=== PATIENT | female | born 1955 | race American Indian/Alaskan Native ===

== ENCOUNTER 2018-05-11 19:21 | Emergency (ER) | payer OTHER ==
[2018-05-11 20:37] VITALS: BP 144/91
[2018-05-11] MEDS ORDERED: BENADRYL PO ONE (23:58)
[2018-05-11] MEDS ORDERED: DELTASONE PO ONE (23:58)
[2018-05-11] MEDS ORDERED: PEPCID PO ONE (23:58)
--- NOTE | 2018-05-12 00:38 | Emergency Department Report ---
HPI - General Chief Complaint: Allergic Reaction Time Seen by Provider: 05/11/18 23:58 - HPI HPI: Patient presents with rash to trunk and arms status post starting ketoconazole call PCP today advised to stop taking ketoconazole patient states unable to get Benadryl at home and presents tonight for rash raised smooth erythema and pruritus no fever no drainage is no shortness of breath no wheezing no throat swelling no stridor no chest pain no nausea vomiting dizziness or lightheadedness ED Past Medical Hx - Past Medical History Hx Hypertension: Yes (borderline) - Surgical History Additional Surgical History: uterus removed - Social History Smoking Status: Current Every Day Smoker Substance Use Type: Alcohol - Medications Home Medications: Home Medications Medication Instructions Recorded Confirmed Last Taken Type Azithromycin [Zithromax] 500 mg PO QDAY #3 tablet 09/16/13 Unknown Rx HYDROcodone/APAP 5-325 [[place] 1 each PO Q6HR PRN #20 tablet 09/16/13 Unknown Rx 5/325 mg] amLODIPine [Norvasc] 5 mg PO DAILY #30 tab 09/16/13 Unknown Rx Famotidine [Pepcid] 20 mg PO BID PRN 7 Days #14 tablet 05/12/18 Unknown Rx diphenhydrAMINE [Benadryl CAP] 25 mg PO Q6HR PRN 7 Days #28 05/12/18 Unknown Rx capsule predniSONE [Deltasone] 20 mg PO QDAY 7 Days #14 tab 05/12/18 Unknown Rx ED Review of Systems ROS: Stated complaint: REACTION TO MEDICATION Other details as noted in HPI Constitutional: denies: chills, fever Eyes: denies: eye pain, eye discharge, vision change ENT: denies: ear pain, throat pain Respiratory: denies: cough, shortness of breath, wheezing Cardiovascular: denies: chest pain, palpitations Endocrine: no symptoms reported Gastrointestinal: denies: abdominal pain, nausea, diarrhea Genitourinary: denies: urgency, dysuria, discharge Musculoskeletal: denies: back pain, joint swelling, arthralgia Skin: rash, pruritus Neurological: denies: headache, weakness, numbness, paresthesias, abnormal gait , vertigo Psychiatric: denies: anxiety, depression Hematological/Lymphatic: denies: easy bleeding, easy bruising Physical Exam - Physical Exam Vital Signs: Vital Signs 05/11/18 20:34 Temperature 98.2 F Pulse Rate 102 H Respiratory 18 Rate Blood Pressure 144/91 [Left] O2 Sat by Pulse 98 Oximetry General: No no acute distress patient 3 no shortness of breath no stridor no wheezing rash improving with Benadryl Physical Exam: Patient a&o 3 no acute distress no shortness of breath no wheezing no stridor no chest pain no nausea vomiting no dizziness no lightheadedness air way is patent no swelling rash improved. with Benadryl given ED ED Course Vital Signs 05/11/18 20:34 Temperature 98.2 F Pulse Rate 102 H Respiratory 18 Rate Blood Pressure 144/91 [Left] O2 Sat by Pulse 98 Oximetry ED Medical Decision Making - Medical Decision Making Likely reaction to ketoconazole symptoms improved with Benadryl prednisone Pepcid with DC'd home with same there has been no hives or shortness of breath no stridor no anaphylaxis no chest pain and no shortness of breath patient will be DC'd home in stable condition at this time patient has DC'd ketoconazole cream PCP has ordered different drugs patient will follow PCP tomorrow Critical care attestation.: If time is entered above; I have spent that time in minutes in the direct care of this critically ill patient, excluding procedure time. ED Disposition Clinical Impression: Allergic reaction Qualifiers: Encounter type: initial encounter Qualified Code(s): T78.40XA - Allergy, unspecified, initial encounter Allergic reaction to drug Qualifiers: Encounter type: initial encounter Qualified Code(s): T78.40XA - Allergy, unspecified, initial encounter Disposition: DC-01 TO HOME OR SELFCARE Is pt being admited?: No Does the pt Need Aspirin: No Condition: Good Instructions: Urticaria (ED), Allergies (ED) Prescriptions: diphenhydrAMINE [Benadryl CAP] 25 mg PO Q6HR PRN 7 Days #28 capsule PRN Reason: allergies Famotidine [Pepcid] 20 mg PO BID PRN 7 Days #14 tablet PRN Reason: allergies predniSONE [Deltasone] 20 mg PO QDAY 7 Days #14 tab Referrals: [facility] [Outside] - 3-5 Days Forms: Work/School Release Form(ED) Time of Disposition: 00:45
== END 2018-05-12 00:50 | disposition home or self-care (01) ==
LOC: ED 19:21
DX: T49.0X5A Adverse effect of local antifungal, anti-infective and anti-inflammatory drugs, initial encounter (principal); F17.200 Nicotine dependence, unspecified, uncomplicated; X58.XXXA Exposure to other specified factors, initial encounter; Y93.89 Activity, other specified; Y92.89 Other specified places as the place of occurrence of the external cause; Y99.8 Other external cause status
CPT/HCPCS: 99282; J7512

== ENCOUNTER 2021-12-14 13:17 | Emergency (ER) | payer MEDICARE ==
--- NOTE | 2021-12-14 14:13 | Emergency Department Report ---
HPI - General Chief Complaint: Dizziness Time Seen by Provider: 12/14/21 13:39 - HPI HPI: Room 2 The patient is a 66-year-old female present with a chief complaint of dizziness. The patient states for the past 2 to 3 days she has felt off balance whenever she stands or walks. Patient denies nausea or vomiting. Patient initially states she had a headache yesterday but then specifies is in the left periauricular region. When asked how she is feeling currently the patient replies "normal, pretty good." ED Past Medical Hx - Past Medical History Hx Hypertension: Yes (borderline) Hx Diabetes: Yes - Surgical History Additional Surgical History: Myomectomy - Social History Smoking Status: Former Smoker (None since 2018) Substance Use Type: None (Denies illicit drug use), Alcohol (Occasionally/rarely) - Medications Home Medications: Home Medications Medication Instructions Recorded Confirmed Last Taken Type Azithromycin [Zithromax] 500 mg PO QDAY #3 tablet 09/16/13 Unknown Rx HYDROcodone/APAP 5-325 [[place] 1 each PO Q6HR PRN #20 tablet 09/16/13 Unknown Rx 5/325 mg] amLODIPine [Norvasc] 5 mg PO DAILY #30 tab 09/16/13 Unknown Rx Famotidine [Pepcid] 20 mg PO BID PRN 7 Days #14 tablet 05/12/18 Unknown Rx diphenhydrAMINE [Benadryl CAP] 25 mg PO Q6HR PRN 7 Days #28 05/12/18 Unknown Rx capsule predniSONE [Deltasone] 20 mg PO QDAY 7 Days #14 tab 05/12/18 Unknown Rx Meclizine [Antivert] 25 mg PO TID PRN #20 12/14/21 Unknown Rx ED Review of Systems ROS: Stated complaint: FEEL OFF BALANCE Other details as noted in HPI Constitutional: no symptoms reported Eyes: denies: eye pain ENT: denies: throat pain Respiratory: no symptoms reported Cardiovascular: denies: chest pain Endocrine: no symptoms reported Gastrointestinal: denies: nausea, vomiting Genitourinary: denies: dysuria Musculoskeletal: denies: back pain Neurological: headache, vertigo Physical Exam - Physical Exam Vital Signs: Vital Signs 12/14/21 13:26 Temperature 98.3 F Pulse Rate 99 H Respiratory 18 Rate Blood Pressure 139/83 [Right] O2 Sat by Pulse 99 Oximetry Physical Exam: GENERAL: The patient is well-developed well-nourished female lying on stretcher not appearing to be in acute distress. [] HEENT: Normocephalic. Atraumatic. Extraocular motions are intact. Patient has moist mucous membranes. No nystagmus noted NECK: Supple. Trachea midline CHEST/LUNGS: Clear to auscultation. There is no respiratory distress noted. HEART/CARDIOVASCULAR: Regular. There is no tachycardia. There is no gallop rub or murmur. ABDOMEN: Abdomen is soft, nontender. Patient has normal bowel sounds. There is no abdominal distention. SKIN: There is no rash. There is no edema. There is no diaphoresis. NEURO: The patient is awake, alert, and oriented. The patient is cooperative. The patient has no focal neurologic deficits. The patient has normal speech. Cranial nerves II through XII grossly intact. No dysmetria noted with [id number] bilaterally MUSCULOSKELETAL: There is no evidence of acute injury. ED Course Vital Signs 12/14/21 13:26 Temperature 98.3 F Pulse Rate 99 H Respiratory 18 Rate Blood Pressure 139/83 [Right] O2 Sat by Pulse 99 Oximetry - Reevaluation(s) Reevaluation #2: 12/14/21 17:28 Repeat orthostatics after IV fluids shows improvement. Supine 118/81 with a heart rate of 94, standing 141/92 with a heart rate of 97 12/14/21 17:33 Patient states she feels improved - Consultations Consultation #1: 12/14/21 14:24 EKG sent to and discussed with patient assessment coordinator Dr. Ramirez- normal EKG ED Medical Decision Making - Lab Data Result diagrams: 12/14/21 14:18 12/14/21 14:18 Laboratory Tests 12/14/21 12/14/21 14:18 14:18 WBC 5.2 RBC 4.90 Hgb 14.8 H Hct 43.8 H MCV 89 MCH 30 MCHC 34 RDW 13.6 Plt Count 212 Lymph % (Auto) 26.1 [place] % (Auto) 7.5 H Eos % (Auto) 1.0 Baso % (Auto) Rehabilitation Assistant Lymph # (Auto) 1.4 [place] # (Auto) 0.4 Eos # (Auto) 0.1 Baso # (Auto) 0.1 Seg Neutrophils % 62.5 Seg Neutrophils # 3.2 Sodium 132 L Potassium 4.5 Chloride 94.3 L Carbon Dioxide 22 Anion Gap 20 BUN 16 Creatinine 1.5 H Estimated GFR 42 BUN/Creatinine Ratio 11 Glucose 453 H Calcium 10.2 Total Creatine Kinase 76 CK-MB (CK-2) 1.5 CK-MB (CK-2) Rel Index 1.9 Troponin T < 0.010 - EKG Data -: EKG Interpreted by Pa EKG shows normal: sinus rhythm Rate: normal - EKG Data When compared to previous EKG there are: previous EKG unavailable Interpretation: nonspecific ST-T wave gadiel - Radiology Data Radiology results: report reviewed (CT head), image reviewed (CT head) [facility] [address] [place] [address] Cat Scan Report Signed Patient: ISAÍAS FRANK MR#: [id number] 19 : 1955 Acct:[id number] Age/Sex: 66 / F ADM Date: 12/14/21 Loc: ED Attending Dr: Ordering Physician: CINDY CHAVEZ MD Date of Service: 12/14/21 Procedure(s): CT head/brain wo con Accession Number(s): [id number] cc: CINDY CHAVEZ MD CT BRAIN: 12/14/2021 INDICATION / CLINICAL INFORMATION: Dizziness. COMPARISON: None available. FINDINGS: BRAIN/INTRACRANIAL STRUCTURES: Unenhanced CT images of the brain demonstrate no evidence of acute abnormality. Ventricles and sulci are slightly prominent in size, consistent with normal age-related atrophic change. There is no evidence of acute ischemic injury, hemorrhage, or mass. There are no abnormal extra- axial fluid collections. EXTRACRANIAL STRUCTURES: Unremarkable. IMPRESSION: No acute abnormality. All CT scans at this location are performed using dose reduction to ALARA by means of automated exposure control. Signer Name: Kavin Webster MD Signed: 12/14/2021 3:18 PM Workstation Name: [id number] Transcribed By: YAQUELIN Dictated By: Kavin Webster MD Electronically Authenticated By: Kavin Webster MD Signed Date/Time: 12/14/211517 DD/ 16 TD/TT: - Differential Diagnosis Vertigo, intracranial mass, ICH, symptomatic anemia, electrolyte imbalance Critical care attestation.: If time is entered above; I have spent that time in minutes in the direct care of this critically ill patient, excluding procedure time. ED Disposition Clinical Impression: Dizziness, Orthostasis, Hyperglycemia Disposition: 01 HOME / SELF CARE / HOMELESS Is pt being admited?: No Does the pt Need Aspirin: No Condition: Stable Additional Instructions: Return to the emergency department should you develop worsening symptoms, inability to tolerate food or liquids, high fever or any other concerns Prescriptions: Meclizine [Antivert] 25 mg PO TID PRN #20 PRN Reason: Vertigo Referrals: ALESHA PUENTE MD [Primary Care Provider] - 3-5 Days JATINDER SNYDER MD [Staff Physician] - 3-5 Days (Dr. Snyder is an ui programmer (ear nose and throat doctor). Please follow-up with him for further evaluation) Time of Disposition: 17:30
[2021-12-14 14:54] LABS: Creatine Kinase MB 1.5 ng/mL (0.0-4.0)
[2021-12-14 14:55] LABS: BUN/Creatinine Ratio 11; Blood Urea Nitrogen 16 mg/dL (7-17); Calcium 10.2 mg/dL (8.4-10.2); Hemolysis Index 11
[2021-12-14] MEDS ORDERED: SODIUM CHLORIDE 0.9% 1000 ML 1,000 ML IV ONE (15:22)
--- NOTE | 2021-12-14 15:22 | Cat Scan Report ---
CT BRAIN: 12/14/2021 INDICATION / CLINICAL INFORMATION: Dizziness. COMPARISON: None available. FINDINGS: BRAIN/INTRACRANIAL STRUCTURES: Unenhanced CT images of the brain demonstrate no evidence of acute abn ormality. Ventricles and sulci are slightly prominent in size, consistent with normal age-related atrophic sarabia ge. There is no evidence of acute ischemic injury, hemorrhage, or mass. There are no abnormal extra-axial fluid collections. EXTRACRANIAL STRUCTURES: Unremarkable. IMPRESSION: No acute abnormality. All CT scans at this location are performed using dose reduction to ALARA by means of automated expos ure control. Signer Name: Kavin Webster MD Signed: 12/14/2021 3:18 PM Workstation Name: [id number]
[2021-12-14 15:23] LABS: Basophils # (Auto) 0.1 K/mm3 (0.0-0.1); Eosinophils # (Auto) 0.1 K/mm3 (0.0-0.4); Hematocrit 43.8 % (30.3-42.9); Hemoglobin 14.8 gm/dl (10.1-14.3); Lymphocytes # (Auto) 1.4 K/mm3 (1.2-5.4); Lymphocytes % (Auto) 26.1 % (13.4-35.0); Mean Corpuscular HGB Conc 34 % (30-34); Mean Corpuscular Volume 89 fl (79-97); Monocytes # (Auto) 0.4 K/mm3 (0.0-0.8); Monocytes % (Auto) 7.5 % (0.0-7.3); Platelet Count 212 K/mm3 (140-440); Red Cell Distribution Width 13.6 % (13.2-15.2)
[2021-12-14 15:40] VITALS: BP 137/85
[2021-12-14] MEDS ORDERED: INSULIN REGULAR, HUMAN 100 UNITS/1 ML IV ONE (16:03)
--- NOTE | 2021-12-15 09:17 | Electrocardiograph Report ---
[facility] Test Date: 2021-12-14 Test Time: 14:12:05 Pat Name: ISAÍAS FRANK Department: Room: Gender: F It Director: OZZIE : 1955 Requested By: CINDY CHAVEZ Order Number: [id number] Reading MD: Linh Kowalski Measurements Intervals [place] Rate: 89 P: 55 [place]: 182 QRS: 44 QRSD: 97 T: 66 QT: 359 QTc: 438 Interpretive Statements Sinus rhythm Diffuse, early repolarization ST segment changes No previous ECG available for comparison Electronically Signed On 12-15-2021 9:16:50 EDT by Linh Kowalski
== END 2021-12-14 17:52 | disposition home or self-care (01) ==
LOC: ED 13:17
DX: R42 Dizziness and giddiness (principal); R73.9 Hyperglycemia, unspecified; I95.1 Orthostatic hypotension; I10 Essential (primary) hypertension; Z87.891 Personal history of nicotine dependence
CPT/HCPCS: 36415; 70450; 80048; 82550; 82553; 82962; 84484; 85025; 93005; 96361; 96374; 99284; Q9967; J1815